=== PATIENT | male | born 1985 | race American Indian/Alaskan Native ===

== ENCOUNTER 2018-12-22 13:03 | Emergency (ER) | payer SELFPAY ==
[2018-12-22 13:27] VITALS: BP 142/88
--- NOTE | 2018-12-22 13:27 | Emergency Department Report ---
Blank Doc - Documentation Documentation: pt presents with substernal CP three days ago describes the pain as sharp states it hurts to breathe +sob +nausea no vomiting no radiation of the pain no recent long car or plane ride, no recent surgery, no immobilization no PMHx no daily meds no family cardiac hx +smoker occ drinker no drug use VSS CP protocol [facility] for further eval
--- NOTE | 2018-12-22 13:41 | XRay Report ---
ROUTINE CHEST, TWO VIEWS: HISTORY: chest pain. The trachea, heart, mediastinal contour, lung lópez and bony thorax are unremarkable. IMPRESSION: Unremarkable chest x-ray.
[2018-12-22 14:04] LABS: Basophils # (Auto) 0.1 K/mm3 (0.0-0.1); Basophils % (Auto) 0.8 % (0.0-1.8); Eosinophils # (Auto) 0.1 K/mm3 (0.0-0.4); Eosinophils % (Auto) 1.4 % (0.0-4.3); Hematocrit 49.8 % (35.5-45.6); Lymphocytes # (Auto) 3.9 K/mm3 (1.2-5.4); Lymphocytes % (Auto) 45.8 % (13.4-35.0); Mean Corpuscular HGB Conc 34 % (32-34); Mean Corpuscular Volume 85 fl (84-94); Monocytes # (Auto) 0.9 K/mm3 (0.0-0.8); Monocytes % (Auto) 10.6 % (0.0-7.3); Platelet Count 246 K/mm3 (140-440); Red Blood Count 5.87 M/mm3 (3.65-5.03); Red Cell Distribution Width 14.8 % (13.2-15.2)
[2018-12-22 14:07] LABS: BUN/Creatinine Ratio 9; Blood Urea Nitrogen 8 mg/dL (9-20); Calcium 9.1 mg/dL (8.4-10.2); Hemolysis Index 13
[2018-12-22 14:12] LABS: INR 0.95 (0.87-1.13)
[2018-12-22 14:13] LABS: Partial Thromboplastin Time 26.4 Sec. (24.2-36.6)
[2018-12-22] MEDS ORDERED: TORADOL IM ONE (14:42)
--- NOTE | 2018-12-22 14:54 | Emergency Department Report ---
ED Chest Pain HPI - General Chief Complaint: Chest Pain Stated Complaint: CHEST PAIN Time Seen by Provider: 12/22/18 13:23 Source: patient Mode of arrival: Ambulatory Limitations: No Limitations - History of Present Illness Initial Comments: 33 you william with a past medical history of obesity and smoking presents to the hospital complaining of midsternal chest pain for last 3 days. Pain is sharp, intermittent, worse with movement, deep inspiration, and palpation. Pain is rated 8/10 intensity. Patient is not taking any medication for pain including [id number] meds. Patient states that he has noticed some increased exertional dyspnea but has also gained weight. He denies cough or cold symptoms, chest wall injury, heavy lifting, recent travel, calf tenderness, leg edema, history of PE/DVT, or family history of CAD. - Related Data Previous Rx's Medication Instructions Recorded Last Taken Type Ibuprofen [Motrin] 800 mg PO Q8HR PRN #30 tablet 12/22/18 Unknown Rx traMADol [Ultram 50 MG tab] 50 mg PO Q6HR PRN #20 tablet 12/22/18 Unknown Rx Allergies Allergy/AdvReac Type Severity Reaction Status Date / Time No Known Allergies Allergy Unverified 12/22/18 13:08 Heart Score - HEART Score History: Slightly suspicious EKG: Non-specific Age: < 45 Risk factors: 1-2 risk factors Troponin: < normal limit HEART Score: 2 ED Review of Systems ROS: Stated complaint: CHEST PAIN Other details as noted in HPI Comment: All other systems reviewed and negative ED Past Medical Hx - Past Medical History Previous Medical History?: No - Surgical History Past Surgical History?: No - Social History Smoking Status: Current Every Day Smoker Substance Use Type: None - Medications Home Medications: Home Medications Medication Instructions Recorded Confirmed Last Taken Type Ibuprofen [Motrin] 800 mg PO Q8HR PRN #30 tablet 12/22/18 Unknown Rx traMADol [Ultram 50 MG tab] 50 mg PO Q6HR PRN #20 tablet 12/22/18 Unknown Rx ED Physical Exam - General Limitations: No Limitations - Other Other exam information: General: No limitations, patient is alert in no acute distress Head exam: Atraumatic, normocephalic Eyes exam: Normal appearance ENT: Moist mucous membrane Neck exam: Normal inspection, full range of motion, no meningismus nontender Respiratory exam: Clear to auscultation bilateral, no wheezes, rales, crackles, mild sternal tenderness Cardiovascular: Normal rate and rhythm, normal heart sounds Abdomen: Soft, nondistended, and nontender, with normal bowel sounds, no rebound, or guarding Extremity: Full range of motion normal inspection no deformity, no calf tenderness or leg asymmetry Back: Normal Inspection, full range of motion, no tenderness Neurologic: Alert, oriented x3, cranial nerves intact, no motor or sensory deficit Psychiatric: normal affect, normal mood Skin: Warm, dry, intact ED Course Vital Signs 12/22/18 13:24 Temperature 98.3 F Pulse Rate 88 Respiratory 18 Rate Blood Pressure 142/88 O2 Sat by Pulse 95 Oximetry ARCELIA score - Arcelia Score Age > 65: (0) No Aspirin use within the Past 7 Days: (0) No 3 or more CAD Risk Factors: (0) No 2 or more Angina events in past 24 hrs: (0) No Known CAD with more than 50% Stenosis: (0) No Elevated Cardiac Markers: (0) No ST Deviation Greater than 0.5mm: (0) No ARCELIA Score: 0 ED Medical Decision Making - Lab Data Result diagrams: 12/22/18 13:28 12/22/18 13:28 Lab Results 12/22/18 12/22/18 12/22/18 Range/Units 13:28 13:28 13:28 WBC 8.5 (4.5-11.0) K/mm3 RBC 5.87 H (3.65-5.03) M/mm3 Hgb 17.0 H (11.8-15.2) gm/dl Hct 49.8 H (35.5-45.6) % MCV 85 (84-94) fl MCH 29 (28-32) pg MCHC 34 (32-34) % RDW 14.8 (13.2-15.2) % Plt Count 246 (140-440) K/mm3 Lymph % (Auto) 45.8 H (13.4-35.0) % Knox % (Auto) 10.6 H (0.0-7.3) % Eos % (Auto) 1.4 (0.0-4.3) % Baso % (Auto) 0.8 (0.0-1.8) % Lymph # 3.9 (1.2-5.4) K/mm3 Knox # 0.9 H (0.0-0.8) K/mm3 Eos # 0.1 (0.0-0.4) K/mm3 Baso # 0.1 (0.0-0.1) K/mm3 Seg Neutrophils % 41.4 (40.0-70.0) % Seg Neutrophils # 3.5 (1.8-7.7) K/mm3 PT 13.3 (12.2-14.9) Sec. INR 0.95 (0.87-1.13) APTT 26.4 (24.2-36.6) Sec. Sodium 138 (137-145) mmol/L Potassium 4.3 (3.6-5.0) mmol/L Chloride 103.0 (98-107) mmol/L Carbon Dioxide 24 (22-30) mmol/L Anion Gap 15 mmol/L BUN 8 L (9-20) mg/dL Creatinine 0.9 (0.8-1.5) mg/dL Estimated GFR > 60 ml/min BUN/Creatinine Ratio 9 % Glucose 93 (75-100) mg/dL Calcium 9.1 (8.4-10.2) mg/dL Troponin T < 0.010 (0.00-0.029) ng/mL - EKG Data -: EKG Interpreted by Wi EKG shows normal: sinus rhythm, axis (qrs axis -23), QRS complexes (qrsd 83), ST-T waves (no stemi/t inv) Rate: normal - EKG Data When compared to previous EKG there are: previous EKG unavailable - Radiology Data Radiology results: report reviewed ROUTINE CHEST, TWO VIEWS: HISTORY: chest pain. The trachea, heart, mediastinal contour, lung lópez and bony thorax are unremarkable. IMPRESSION: Unremarkable chest x-ray. - Medical Decision Making Patient has pain at the sternal area. Other workup unremarkable. No DVT/PE risk factors. Patient informed of borderline blood pressure and need for follow-up. Treated with Toradol in the ED - Differential Diagnosis costochondritis, PE, pneumothorax, GA Critical Care Time: No Critical care attestation.: If time is entered above; I have spent that time in minutes in the direct care of this critically ill patient, excluding procedure time. ED Disposition Clinical Impression: Costochondritis, Smoker, Elevated blood pressure reading Disposition: TO HOME OR SELFCARE Is pt being admited?: No Does the pt Need Aspirin: No Condition: Stable Instructions: Costochondritis (ED), How to Stop Smoking (ED), How to Take a Blood Pressure (ED) Additional Instructions: Take the medication as prescribed. Follow up with your doctor or the clinic/doctor provided. Return if symptoms worsen as indicated by your discharge instructions Prescriptions: Ibuprofen [Motrin] 800 mg PO Q8HR PRN #30 tablet PRN Reason: Pain, Moderate (4-6) traMADol [Ultram 50 MG tab] 50 mg PO Q6HR PRN #20 tablet PRN Reason: Pain Referrals: JONES GREENWOOD MD [Primary Care Provider] - 3-5 Days Forms: Work/School Release Form(ED) Time of Disposition: 14:55
== END 2018-12-22 15:02 | disposition home or self-care (01) ==
LOC: ED 13:03
DX: M94.0 Chondrocostal junction syndrome [Tietze] (principal); R03.0 Elevated blood-pressure reading, without diagnosis of hypertension; F17.200 Nicotine dependence, unspecified, uncomplicated
CPT/HCPCS: 36415; 71046; 80048; 84484; 85025; 85610; 85730; 93005; 93010; 96372; 99284; J1885

== ENCOUNTER 2020-08-07 23:17 | Emergency (ER) | payer OTHER ==
[2020-08-07] MEDS ORDERED: ASPIRIN 325 MG TAB PO ONE (23:46)
[2020-08-07] MEDS ORDERED: ACETAMINOPHEN 325 MG TAB PO ONE (23:50)
--- NOTE | 2020-08-07 23:52 | Emergency Department Report ---
<LASHON AMBROCIO - Last Filed: 08/08/20 01:44> ED Chest Pain HPI - General Stated Complaint: JACK/CHEST PAIN Time Seen by Provider: 08/07/20 23:47 Source: patient - History of Present Illness Initial Comments: 35-year-old -Martiniquais obese male with no significant past medical history presents to the ER today complaint of chest pain. Patient states that his chest pain started while she was sitting at work this morning. Patient describes a "knot" in substernal chest area sometimes migrate into his left and right chest. He states it has been constant since it started this morning and nonradiating. He reports associated shortness of breath, generalized weakness, intermittent dizziness, headache, mild upper abdominal pain. He states when he layed down tonight he felt his heart racing and so decided to come to ED. He denies any nausea, vomiting or diaphoresis. He is unable to describe any modifying factors. Denies any associated calf pain or lower extremity swelling. He denies any cough, wheezing or URI symptoms. He denies any fever or chills. He denies tobacco use or family hx of any CAD/RI. MD Complaint: chest pain -: Gradual (today at work ) Onset: during rest Pain Location: substernal, right chest Pain Radiation: none Quality: other (fullness) Consistency: constant Improves With: nothing Worsens With: nothing re: dyspnea. denies: nausea, vomting, diaphoresis, sense of impending doom Other Symptoms: palpitations. denies: cough, fever, syncope, rash, acid taste in mouth, leg swelling, burping - Related Data Previous Rx's Medication Instructions Recorded Last Taken Type Ibuprofen [Motrin] 800 mg PO Q8HR PRN #30 tablet 12/22/18 Unknown Rx traMADoL [Ultram 50 MG tab] 50 mg PO Q6HR PRN #20 tablet 12/22/18 Unknown Rx Naproxen 500 mg PO BID PRN #30 tablet 08/08/20 Unknown Rx Allergies Allergy/AdvReac Type Severity Reaction Status Date / Time No Known Allergies Allergy Unverified 12/22/18 13:08 Heart Score - HEART Score History: Slightly suspicious EKG: Normal Age: < 45 Risk factors: No known risk factors Troponin: < normal limit HEART Score: 0 ED Review of Systems Comment: All other systems reviewed and negative Constitutional: denies: chills, fever ENT: denies: ear pain, throat pain Respiratory: shortness of breath, SOB with exertion. denies: cough, wheezing Cardiovascular: chest pain, palpitations. denies: dyspnea on exertion, orthopnea, edema, syncope, paroxysmal nocturnal dyspnea Gastrointestinal: abdominal pain. denies: nausea, vomiting, diarrhea, constipation, hematemesis, hematochezia Genitourinary: denies: urgency, dysuria Musculoskeletal: denies: back pain, joint swelling, arthralgia, myalgia Skin: denies: rash Neurological: weakness. denies: numbness, paresthesias, confusion, abnormal gait Psychiatric: denies: anxiety, depression ED Past Medical Hx - Past Medical History Previous Medical History?: Yes Additional medical history: Obesity - Surgical History Past Surgical History?: No - Social History Smoking Status: Never Smoker Substance Use Type: None - Medications Home Medications: Home Medications Medication Instructions Recorded Confirmed Last Taken Type Ibuprofen [Motrin] 800 mg PO Q8HR PRN #30 tablet 12/22/18 Unknown Rx traMADoL [Ultram 50 MG tab] 50 mg PO Q6HR PRN #20 tablet 12/22/18 Unknown Rx Naproxen 500 mg PO BID PRN #30 tablet 08/08/20 Unknown Rx ED Physical Exam - General General appearance: alert, in no apparent distress, obese - Head Head exam: Present: atraumatic, normocephalic, normal inspection - Eye Eye exam: Present: normal appearance, PERRL, EOMI Pupils: Present: normal accommodation - Neck Neck exam: Present: normal inspection - Respiratory Respiratory exam: Present: normal lung sounds bilaterally. Absent: respiratory distress, wheezes, rales, rhonchi - Cardiovascular Cardiovascular Exam: Present: normal rhythm, tachycardia, normal heart sounds - GI/Abdominal GI/Abdominal exam: Present: soft, tenderness (very mild epigastric ttp.). Absent: distended, guarding, rebound - Extremities Exam Extremities exam: Present: normal inspection, full ROM. Absent: tenderness, pedal edema, calf tenderness - Neurological Exam Neurological exam: Present: alert, oriented X3, CN II-XII intact - Psychiatric Psychiatric exam: Present: normal affect, normal mood - Skin Skin exam: Present: intact ED Course - Reevaluation(s) Reevaluation #1: 08/08/20 01:01 Pt states he still feels the "knot" in his chest, only mild improvement after tylenol/ASA. He states his SOB "a little" better. Labs so far show initial nl trop, DDimer nl, CXR nl; CBC/CMP unremarkable. Initial EKG showed not clear, with too much artificat, pt currently getting another EKG Will try duoneb tx; Repeat trop pending 08/08/20 01:22 EKG shows NSR without STEMI, or other acute ischemic changes or significant dysrhythmia. 08/08/20 01:44 Repeat trop and neb tx pending. Case discussed and turned over to Cameron Gonzalez. Patient currently stable. DONALD score - Donald Score Age > 65: (0) No Aspirin use within the Past 7 Days: (0) No 3 or more CAD Risk Factors: (0) No 2 or more Angina events in past 24 hrs: (0) No Known CAD with more than 50% Stenosis: (0) No Elevated Cardiac Markers: (0) No ST Deviation Greater than 0.5mm: (0) No DONALD Score: 0 ED Medical Decision Making - Lab Data Result diagrams: 08/08/20 00:13 08/08/20 00:13 - EKG Data -: EKG Interpreted by Fl EKG shows normal: sinus rhythm Rate: normal - EKG Data Interpretation: no acute changes, normal EKG - Radiology Data Radiology results: report reviewed ED Disposition Clinical Impression: Atypical chest pain Disposition: DC-01 TO HOME OR SELFCARE Condition: Stable Instructions: Chest Pain (ED), Nonspecific Chest Pain, Adult Prescriptions: Naproxen 500 mg PO BID PRN #30 tablet PRN Reason: pain Referrals: MARYURI ASH MD [Staff Physician] - 3-5 Days Forms: Work/School Release Form(ED) <CAMERON GONZALEZ - Last Filed: 08/08/20 04:41> ED Review of Systems ROS: Stated complaint: JACK/CHEST PAIN Other details as noted in HPI ED Course Vital Signs 08/07/20 08/08/20 23:42 03:08 Temperature 99.1 F Pulse Rate 119 H Respiratory 18 18 Rate Blood Pressure 149/91 O2 Sat by Pulse 94 Oximetry ED Medical Decision Making - Lab Data Result diagrams: 08/08/20 00:13 08/08/20 00:13 Labs 01/03/2108/08/20 08/08/20 00:13 00:13 00:13 WBC 6.5 RBC 5.63 H Hgb 16.6 H Hct 48.5 H MCV 86 MCH 29 MCHC 34 RDW 14.3 Plt Count 189 Add Manual Diff Complete Total Counted 100 Seg Neuts % (Manual) 65.0 Lymphocytes % (Manual) 23.0 Monocytes % (Manual) 11.0 H Eosinophils % (Manual) 1.0 Nucleated RBC % Not Reportable Seg Neutrophils # Man 4.2 Band Neutrophils # 0.0 Lymphocytes # (Manual) 1.5 Abs React Lymphs (Man) 0.0 Monocytes # (Manual) 0.7 Eosinophils # (Manual) 0.1 Basophils # (Manual) 0.0 Metamyelocytes # 0.0 Myelocytes # 0.0 Promyelocytes # 0.0 Blast Cells # 0.0 WBC Morphology Not Reportable Hypersegmented Neuts Not Reportable Hyposegmented Neuts Not Reportable Hypogranular Neuts Not Reportable Smudge Cells Not Reportable Toxic Granulation Not Reportable Toxic Vacuolation Not Reportable Dohle Bodies Not Reportable Pelger-Huet Anomaly Not Reportable Juliet Rods Not Reportable Platelet Estimate Cons Clumped Platelets Not Reportable Plt Clumps, EDTA Not Reportable Large Platelets Rare Giant Platelets Not Reportable Platelet Satelliting Not Reportable Plt Morphology Comment Not Reportable RBC Morphology Not Reportable Dimorphic RBCs Not Reportable Polychromasia Not Reportable Hypochromasia Not Reportable Poikilocytosis Not Reportable Anisocytosis 1+ Microcytosis Not Reportable Macrocytosis Not Reportable Spherocytes Not Reportable Pappenheimer Bodies Not Reportable Sickle Cells Not Reportable Target Cells Not Reportable Tear Drop Cells Not Reportable Ovalocytes Not Reportable Helmet Cells Not Reportable Vazquez-Plain Dealing Bodies Not Reportable Vivian Rings Not Reportable Herson Cells Not Reportable Bite Cells Not Reportable Crenated Cell Not Reportable Elliptocytes Not Reportable Acanthocytes (Spur) Not Reportable Rouleaux Not Reportable Hemoglobin C Crystals Not Reportable Schistocytes Not Reportable Malaria parasites Not Reportable Lewis Bodies Not Reportable Hem Pathologist Commnt No D-Dimer 152.26 Sodium 138 Potassium 4.1 Chloride 102.5 Carbon Dioxide 24 Anion Gap 16 BUN 12 Creatinine 0.9 Estimated GFR > 60 BUN/Creatinine Ratio 13 Glucose 147 H Calcium 9.6 Troponin T < 0.010 Lipase 08/08/20 00:13 WBC RBC Hgb Hct MCV MCH MCHC RDW Plt Count Add Manual Diff Total Counted Seg Neuts % (Manual) Lymphocytes % (Manual) Monocytes % (Manual) Eosinophils % (Manual) Nucleated RBC % Seg Neutrophils # Man Band Neutrophils # Lymphocytes # (Manual) Abs React Lymphs (Man) Monocytes # (Manual) Eosinophils # (Manual) Basophils # (Manual) Metamyelocytes # Myelocytes # Promyelocytes # Blast Cells # WBC Morphology Hypersegmented Neuts Hyposegmented Neuts Hypogranular Neuts Smudge Cells Toxic Granulation Toxic Vacuolation Dohle Bodies Pelger-Huet Anomaly Juliet Rods Platelet Estimate Clumped Platelets Plt Clumps, EDTA Large Platelets Giant Platelets Platelet Satelliting Plt Morphology Comment RBC Morphology Dimorphic RBCs Polychromasia Hypochromasia Poikilocytosis Anisocytosis Microcytosis Macrocytosis Spherocytes Pappenheimer Bodies Sickle Cells Target Cells Tear Drop Cells Ovalocytes Helmet Cells Vazquez-Plain Dealing Bodies Vivian Rings Herson Cells Bite Cells Crenated Cell Elliptocytes Acanthocytes (Spur) Rouleaux Hemoglobin C Crystals Schistocytes Malaria parasites Lewis Bodies Hem Pathologist Commnt D-Dimer Sodium Potassium Chloride Carbon Dioxide Anion Gap BUN Creatinine Estimated GFR BUN/Creatinine Ratio Glucose Calcium Troponin T Lipase 22 - Medical Decision Making cxr normal no infiltrates no opacities, ekg NSR: NO STEMI initial and repeat ekg, ekgs interpreted by ed attending, trop <o.o1 x 2, Heart score 0, pt denies cp at this time, plan: dc go home with rx nsaids prn, follow up with pcp in 2-3 days , pt verbalized agreement and understanding of discharge plan. Critical care attestation.: If time is entered above; I have spent that time in minutes in the direct care of this critically ill patient, excluding procedure time. ED Disposition Is pt being admited?: No Does the pt Need Aspirin: No Time of Disposition: 04:41
[2020-08-08] MEDS ORDERED: SODIUM CHLORIDE 0.9% 1000 ML 1,000 ML IV ONE (00:03)
--- NOTE | 2020-08-08 00:36 | XRay Report ---
XR chest 1V ap INDICATION / CLINICAL INFORMATION: Chest Pain COMPARISON: None available. FINDINGS: SUPPORT DEVICES: None. HEART / MEDIASTINUM: No significant abnormality. LUNGS / PLEURA: Lungs are clear. Costophrenic sulci are sharp. No pneumothorax. ADDITIONAL FINDINGS: No significant additional findings. IMPRESSION: 1. No acute findings. Signer Name: Ced Robins MD Signed: 08/08/2020 12:32 AM Workstation Name: [id number]
[2020-08-08 00:46] LABS: Hematocrit 48.5 % (35.5-45.6); Hemoglobin 16.6 gm/dl (11.8-15.2); Mean Corpuscular Volume 86 fl (84-94); Red Blood Count 5.63 M/mm3 (3.65-5.03)
[2020-08-08 00:47] LABS: Mean Corpuscular HGB Conc 34 % (32-34); Platelet Count 189 K/mm3 (140-440); Red Cell Distribution Width 14.3 % (13.2-15.2)
[2020-08-08 00:51] LABS: BUN/Creatinine Ratio 13; Blood Urea Nitrogen 12 mg/dL (9-20); Calcium 9.6 mg/dL (8.4-10.2); Hemolysis Index 8
[2020-08-08] MEDS ORDERED: IPRATROPIUM/ALBUTEROL SULFATE 3 ML AMPUL.NEB IH ONE (01:03)
[2020-08-08 02:14] LABS: Anisocytosis 1+; Total Cells Counted 100
[2020-08-08 02:15] LABS: Large Platelets Rare; Platelet Estimate Cons
[2020-08-08 03:57] VITALS: BP 142/95
== END 2020-08-08 03:56 | disposition home or self-care (01) ==
LOC: ED 23:17
DX: R07.89 Other chest pain (principal); Z79.899 Other long term (current) drug therapy
CPT/HCPCS: 36415; 71045; 80048; 83690; 84484; 85007; 85025; 85379; 93005; 96360; 99284; J7030